=== PATIENT | female | born 1990 ===

== ENCOUNTER 2019-03-27 11:58 | Emergency (ER) | payer SELFPAY ==
[2019-03-27 12:38] LABS: #Basophils 0.1 thou/uL (0.0-0.2); #Lymphocytes 2.5 thou/uL (1.20-3.40); #Monocytes 0.3 thou/uL (0.11-0.59); #Neutrophils 2.1 thou/uL (1.40-6.50); %Basophils 1.3 % (0.0-1.0); %Eosinophils 0.6 % (0.0-10.0); %Lymphocytes 49.8 % (21.0-51.0); %Monocytes 6.7 % (0.0-10.0); %Neutrophils 41.6 % (42.0-75.0); Hemoglobin 10.1 g/dL (12.0-16.0); Mean Corpuscular Hemoglobin 24.9 pg (27.0-31.0); Mean Corpuscular Volume 77.6 fL (78.0-98.0); Mean Platelet Volume 7.1 fL (7.4-10.4); Platelet Count 310 thou/uL (130-400); RBC Distribution Width 15.4 % (11.5-14.5); Red Blood Cell (RBC) Count 4.08 mill/uL (4.20-5.40)
[2019-03-27 12:42] LABS: Bilirubin Negative (Negative); Blood, Urine Negative (Negative); Clarity Clear (Clear); Glucose, Urine (Dipstick) Normal (Negative); Leukocyte Negative Leu/uL (Negative); Nitrite Negative (Negative); Pregnancy Test - Urine (BHCG) POSITIVE (Negative); Pregu Control Background? CLEAR/WHITE (CLR/WHITE); Pregu Control Bar Appear? YES (CONTROL BAR); Protein, Urine (Dipstick) 20 mg/dL (Neg-Trace); Specific Gravity 1.027 (1.002-1.036); Urobilinogen Normal mg/dL (Less than 2)
[2019-03-27 12:57] LABS: ALT (SGPT) Less than 7 U/L (8-55); AST (SGOT) 19 U/L (5-34); Albumin 4.1 g/dL (3.5-5.0); Alkaline Phosphatase 47 U/L (40-150); Anion Gap 11 mmol/L (10-20); BUN (Urea Nitrogen) 7 mg/dL (7.0-18.7); Bilirubin, Total 0.3 mg/dL (0.2-1.2); Calc. Creatinine Clearance 0 mL/min (70-130); Calcium 9.5 mg/dL (7.8-10.44); Carbon Dioxide 22 mmol/L (22-29); Chloride 106 mmol/L (98-107); Estimated GFR-MDRD 89; Globulin 3.5 g/dL (2.4-3.5); Glucose 72 mg/dL (70-105); MDiff Complete? YES; Microcytosis SLIGHT = 6-15 cells (100X) (0-5/hpf); Ovalocytes SLIGHT = 2-5 cells (100X) (0-1/hpf); Platelet Morphology Comment Appears Adequate; Potassium 4.1 mmol/L (3.5-5.1); Protein, Total 7.6 g/dL (6.0-8.3); Sodium 135 mmol/L (136-145); Target Cells SLIGHT = 2-5 cells (100X) (0-1/hpf)
== END 2019-03-27 14:00 | disposition home or self-care (01) ==
LOC: ERS 11:58
DX: O99.89 Other specified diseases and conditions complicating pregnancy, childbirth and the puerperium (principal); R42 Dizziness and giddiness; Z3A.01 Less than 8 weeks gestation of pregnancy
CPT/HCPCS: 36415; 80053; 81003; 81025; 85025; 99284

== ENCOUNTER 2019-11-13 15:53 | Inpatient (IN) | payer BC ==
[~2019-11-13 15:53] MED LIST: Acetaminophen 500 MG TAB PO PRN; Azithromycin 500 MG in Sodium Chloride 0.9% 250 ML 250 ML IVPB SCH; Bicitra 30 ML UDCUP PO SCH; CEFAZOLIN 2 GM in Premix Bag 1 BAG IVPB SCH; Lactated Ringer's 1,000 ML IV SCH; Ondansetron PF 4 MG/2 ML Vial IVP PRN; Promethazine HCl 25 MG/ML VIAL IM PRN; hydrALAZINE 20 MG/ML VIAL SLOW IVP PRN
[2019-11-13 16:57] LABS: Hemoglobin 9.8 g/dL (12.0-16.0); Mean Corpuscular Hemoglobin 24.1 pg (27.0-31.0); Mean Corpuscular Volume 77.7 fL (78.0-98.0); Mean Platelet Volume 7.2 fL (7.4-10.4); Platelet Count 351 thou/uL (130-400); RBC Distribution Width 17.3 % (11.5-14.5); Red Blood Cell (RBC) Count 4.08 mill/uL (4.20-5.40); White Blood Cell (WBC) Count 6.3 thou/uL (4.8-10.8)
[2019-11-13] MEDS ORDERED: Bicitra 30 ML UDCUP ONE (17:01)
--- NOTE | 2019-11-13 17:04 | PDOC.LDHP ---
Labor and Delivery H&P Chief complaint: scheduled section HPI: 29 yo at 41 weeks with prior for distress done in [place] - no records available - unkown uterine scar. Wanted to TOLAC but now postdates with an unfavorable cervix. Poor candidate at this time. TOLAC calculator 42% success prediction. For this reason we will proceed with scheduled repeat C/S today. Due date: 11/06/19 Dating criteria: last menstrual period, first trimester ultrasound (13 week U/S and 23 weeks U/S cofirm dating by LMP) Grav: 2 Para: 1 Current complications: other (Anemia) Abnormal US findings: No Current medications: pre-mina vitamins Previous surgical history: low tranverse CS (Done in [place], no records available) Social history: none - Physical Exam Vital signs reviewed and normal: yes General: NAD Heart: RRR Lungs: CTAB Abdomen: gravid Extremeties: no edema FHT: category 1, variability present - Vaginal Exam cm dilated: 1 Effacement: 25% Station: -2 - OB Labs Blood type: A RH: positive Antibody Screen: negative HIV: negative RPR: negative HEPSAg: negative 1 hour GCT: negative GBS: negative Urine drug screen: not done Rubella: immune - Assessment L&D Assessment: scheduled repeat section - Plan Plan: admit to L&D, to OR for section, informed consent obtained, anesthesia consult for pain management
[2019-11-13 17:10] VITALS: BMI 39.1
[2019-11-13 17:36] LABS: HBSAg Index 0.15 S/CO (0-0.99); Hep B Surf Ag Non-Reactive S/CO (NonReactive); Syphilis Antibody Nonreactive (Nonreactive); Syphilis Antibody Index 0.14 S/CO (<1.00 Non-Reactive)
[2019-11-13] MEDS ORDERED: Glycopyrrolate 0.2 MG/ML 5 ML SYRINGE ONE (20:09)
[2019-11-13] MEDS ORDERED: EPHEDRINE 25 MG/5 ML SYRINGE ONE (20:09)
[2019-11-13] MEDS ORDERED: Oxytocin 10 UNITS/ML VIAL ONE ×2 (20:09→20:29)
[2019-11-13] MEDS ORDERED: PHENYLEPHRINE-NS 100 MCG/ML 10 ML SYRINGE ONE (20:09)
[2019-11-13] MEDS ORDERED: Ondansetron PF 4 MG/2 ML Vial ONE (20:09)
[2019-11-13] MEDS ORDERED: MORPHINE 5 MG/10 ML PF VIAL ONE (20:13)
[2019-11-13] MEDS ORDERED: Dexamethasone 4 mg/ml Vial ONE (20:29)
[2019-11-13] MEDS ORDERED: diphenhydrAMINE 50 MG/ML VIAL ONE (20:29)
[2019-11-13] MEDS ORDERED: Ketorolac Tromethamine 30 MG/ML VIAL ONE (20:30)
[2019-11-13] MEDS ORDERED: Promethazine HCl 25 MG SUPP PR PRN (20:54)
[2019-11-13] MEDS ORDERED: Naloxone HCl 0.4 mg/ml Vial IV PRN (20:54)
[2019-11-13] MEDS ORDERED: Promethazine HCl 25 MG/ML VIAL IM PRN ×2 (20:54→20:55)
[2019-11-13] MEDS ORDERED: Naloxone HCl 0.4 mg/ml Vial IVP PRN ×2 (20:54)
[2019-11-13] MEDS ORDERED: Ondansetron PF 4 MG/2 ML Vial IVP PRN (20:54)
[2019-11-13] MEDS ORDERED: Ondansetron HCl/PF 4 MG/2 ML Vial IVP PRN (20:55)
[2019-11-13] MEDS ORDERED: Promethazine HCl 25 MG/ML VIAL SLOW IVP PRN (20:55)
[2019-11-13] MEDS ORDERED: Midazolam HCl 2 mg/2 ml Vial ONE (20:59)
[2019-11-13] MEDS ORDERED: Communication Order-Pharmacy FS SCH (21:00)
[2019-11-14] MEDS ORDERED: Lanolin Ointment 7 GM TUBE TOP PRN (00:07)
[2019-11-14] MEDS ORDERED: hydrALAZINE 20 MG/ML VIAL SLOW IVP PRN (00:07)
[2019-11-14] MEDS ORDERED: Acetaminophen 325 MG TAB PO PRN (00:07)
--- NOTE | 2019-11-14 01:27 | OP ---
DATE OF PROCEDURE: 11/13/2019 PREOPERATIVE DIAGNOSIS: 41-week intrauterine with previous section. POSTOPERATIVE DIAGNOSIS: 41-week intrauterine with previous section, status post delivery. PROCEDURE PERFORMED: Repeat low-transverse section. RESPIRATORY DIRECTOR: Dr. Loza. ANESTHESIA: Spinal anesthetic. COMPLICATIONS: No complications. DESCRIPTION OF PROCEDURE: After adequate spinal anesthetic, the patient was placed in the supine position. A wedge was placed under her right flank. A Barrera catheter was placed, and the abdomen was prepped and draped in the usual sterile technique. A Pfannenstiel incision was made over the old scar, and the old skin scar was removed due to the keloid without difficulty. Subcutaneous tissue opened with sharp dissection. Noted that there was a moderate amount of scarring. Fascia opened with sharp dissection and peritoneum opened with sharp and blunt dissections. Again, noted that there is moderate scarring entering the fascia and peritoneal implants. The Gabe O retractor was placed without difficulty, and a low-transverse incision was made on the uterus. Membranes were ruptured. Clear fluid was encountered, and a viable female was delivered from vertex presentation without difficulty. Infant breathed and cried spontaneously after approximately 30 seconds. The cord was clamped and cut. Infant was handed to the care of the Neonatology Team. Cord blood was obtained. The placenta was delivered manually. The uterus was explored with a wet lap noted. There were no additional membrane fragments, and the hysterotomy scar was grasped with ring forceps. The hysterotomy was then closed in continuous fashion using 0 Monocryl suture with good hemostasis. There was no additional bleeding. Gutters were checked. The Gabe O retractor was removed, and the peritoneal edges were then closed using 2-0 chromic. Again, noted that there was a moderate amount of scarring without difficulty. There was no further bleeding. Sponge and instrument counts were correct, and the fascia was then closed in continuous fashion using 0 Vicryl. 2-0 plain was used in a continuous fashion to approximate the subcutaneous tissue after irrigation and several bleeders were cauterized, and the skin was then closed using edmundo. The patient tolerated the procedure well. A pressure dressing was applied. The patient to go to recovery room in good condition. The baby is a viable female infant, weight 7 pounds 9 ounces, Apgars 8 at one minute, 8 at five minutes, to go to level-1 nursery in good condition. Quantitative blood loss was pending at this time. Estimated blood loss approximately 500 mL. Job ID: [id number]
[2019-11-14] MEDS: Ketorolac Tromethamine 30 MG/ML VIAL IVP PRN ×2 (04:22→15:17)
[2019-11-14] MEDS: diphenhydrAMINE 50 MG/ML VIAL IVP PRN ×2 (04:23→08:17)
[2019-11-14] MEDS: Simethicone Chewable 80 MG TAB PO PRN (04:24)
[2019-11-14] MEDS: Ferrous Sulfate 325 MG TAB PO SCH ×2 (08:00→22:07)
[2019-11-14] MEDS ORDERED: Sodium Chloride 0.9% 10 ML ONE (08:11)
--- NOTE | 2019-11-14 08:38 | PDOC.PP ---
Post Progress Note Post Day #: 1 Subjective: Doing well. Pain controlled. Slept OK. Bleeding scant. Incision with dry dressing in place. PO intake tolerated: yes Flatus: yes Ambulation: yes Vital Signs (12 hours) Temp Pulse Resp BP Pulse Ox 11/14/19 04:20 97.8 F 56 L 18 120/71 98 11/14/19 01:50 98.0 F 58 L 18 118/79 98 Weight Weight 221 lb - Physical Examination General: NAD Cardiovascular: no m/r/g Respiratory: clear to auscultation bilaterally Abdominal: + bowel sounds Extremities: negative homans (B) Skin: CS incision dry & intact Neurological: no gross focal deficits Psychiatric: A&Ox3 Result Diagrams: 11/13/19 16:47 Additional Labs: Post Labs Blood Type A POSITIVE 11/13/19 16:47 Hep Bs Antigen Non-Reactive S/CO (NonReactive) 11/13/19 16:46 (1) Status post repeat low transverse section Code(s): Z98.891 - HISTORY OF UTERINE SCAR FROM PREVIOUS SURGERY Status: Acute - Assessment/Plan Routine Post-op care Work on Pain control Remove dressing later today D/C likely Saturday.
[2019-11-14] MEDS ORDERED: Adacel (T-DAP) 0.5 ML SYRINGE IM ONE (09:00)
[2019-11-14 10:27] LABS: Hemoglobin 10.3 g/dL (12.0-16.0); Mean Corpuscular HGB CONC 32.2 g/dL (32.0-36.0); Mean Corpuscular Hemoglobin 24.9 pg (27.0-31.0); Mean Corpuscular Volume 77.4 fL (78.0-98.0); Mean Platelet Volume 7.5 fL (7.4-10.4); Platelet Count 341 thou/uL (130-400); RBC Distribution Width 17.5 % (11.5-14.5); Red Blood Cell (RBC) Count 4.14 mill/uL (4.20-5.40); White Blood Cell (WBC) Count 10.6 thou/uL (4.8-10.8)
[2019-11-14] MEDS: HYDROcodone/Acetaminophen 5/325 mg Tablet PO PRN ×2 (16:47→22:10)
[2019-11-14] MEDS: Ibuprofen 800 MG TAB PO SCH (22:06)
[2019-11-15] MEDS: HYDROcodone/Acetaminophen 5/325 mg Tablet PO PRN ×4 (05:06→17:03)
[2019-11-15] MEDS: Ibuprofen 800 MG TAB PO SCH ×3 (05:06→22:06)
[2019-11-15] MEDS: Ferrous Sulfate 325 MG TAB PO SCH ×2 (09:05→14:33)
--- NOTE | 2019-11-15 13:34 | PDOC.PP ---
Post Progress Note Post Day #: 2 Subjective: Doing well. Pain controlled. Showered today. PO intake tolerated: yes Flatus: yes Ambulation: yes Vital Signs (12 hours) Temp Pulse Resp BP Pulse Ox 11/15/19 12:25 98.5 F 81 18 115/60 11/15/19 07:45 98.3 F 73 18 109/61 98 11/15/19 05:00 98.0 F 81 18 117/70 Weight Weight 221 lb - Physical Examination General: NAD Cardiovascular: no m/r/g, RRR Respiratory: clear to auscultation bilaterally, non-labored breathing Abdominal: + bowel sounds, lochia, no distention, appropriately TTP Extremities: negative homans (B) Skin: CS incision dry & intact Neurological: no gross focal deficits Psychiatric: A&Ox3 Result Diagrams: 11/14/19 10:08 Additional Labs: Post Labs Blood Type A POSITIVE 11/13/19 16:47 Hep Bs Antigen Non-Reactive S/CO (NonReactive) 11/13/19 16:46 (1) Status post repeat low transverse section Code(s): Z98.891 - HISTORY OF UTERINE SCAR FROM PREVIOUS SURGERY Status: Acute (2) delivery delivered Code(s): O82 - ENCOUNTER FOR DELIVERY WITHOUT INDICATION Status: Acute - Assessment/Plan Routine post op care D/C home tomorrow D/C edmundo prior to discharge
[2019-11-15] MEDS: Simethicone Chewable 80 MG TAB PO PRN (22:06)
[2019-11-16] MEDS: HYDROcodone/Acetaminophen 5/325 mg Tablet PO PRN ×3 (00:20→11:01)
[2019-11-16] MEDS: Ibuprofen 800 MG TAB PO SCH ×2 (04:44→14:01)
[2019-11-16 08:11] VITALS: BP 109/71; TEMP 98.6
[2019-11-16] MEDS: Ferrous Sulfate 325 MG TAB PO SCH (08:38)
--- NOTE | 2019-11-16 08:43 | PDOC.PP ---
Post Progress Note Post Day #: 3 Subjective: Doing well. Ready to go home today. Pain controlled. PO intake tolerated: yes Flatus: yes Ambulation: yes Vital Signs (12 hours) Temp Pulse Resp BP Pulse Ox 11/16/19 08:09 98.6 F 78 20 109/71 99 Weight Weight 221 lb - Physical Examination General: NAD Cardiovascular: no m/r/g, RRR Respiratory: clear to auscultation bilaterally, non-labored breathing Abdominal: + bowel sounds, lochia, no distention, appropriately TTP Extremities: negative homans (B) Skin: CS incision dry & intact Neurological: no gross focal deficits Psychiatric: A&Ox3 Result Diagrams: 11/14/19 10:08 Additional Labs: Post Labs Blood Type A POSITIVE 11/13/19 16:47 Hep Bs Antigen Non-Reactive S/CO (NonReactive) 11/13/19 16:46 (1) Status post repeat low transverse section Code(s): Z98.891 - HISTORY OF UTERINE SCAR FROM PREVIOUS SURGERY Status: Acute (2) delivery delivered Code(s): O82 - ENCOUNTER FOR DELIVERY WITHOUT INDICATION Status: Acute - Assessment/Plan Routine post-op care D/C edmundo and place steristrips D/C home F/U in 2 weeks
== END 2019-11-16 16:10 | disposition home or self-care (01) | DRG 788 ==
LOC: L&D 15:53 → 3SW 11-14 02:24
PROVIDERS: ADMIT Family Medicine; ATTEND Family Medicine
PROC: 10D00Z1 Extraction of Products of Conception, Low, Open Approach (ICD-10-PCS; principal; 2019-11-13)
DX: O34.211 Maternal care for low transverse scar from previous cesarean delivery (principal); Z3A.41 41 weeks gestation of pregnancy; Z37.0 Single live birth; O99.02 Anemia complicating childbirth; D64.9 Anemia, unspecified
CPT/HCPCS: 36415; 51702; 85027; 86780; 86850; 86900; 86901; 87340; J0690; J1100; J1200; J1885; J2250; J2274; J2405; J2590